=== PATIENT | male | born 1995 | race Hispanic/Latino ===

== ENCOUNTER 2021-01-07 03:42 | Emergency (ER) | payer OTHER ==
[~2021-01-07] VITALS: Ht 170.2 cm; Wt 90.7 kg
[2021-01-07] MEDS ORDERED: ISOVUE-370 76% 100ML VIAL As Ordered ONE (05:30)
[2021-01-07 05:35] LABS: BASO % 0.3 % (0.0-1.0); EOS % 0.2 % (0.0-3.0); HEMATOCRIT 43.3 % (42.0-52.0); HEMOGLOBIN 14.3 g/dl (13.5-17.5); LYMPH # 1.7 10^3/uL (1.5-5.0); LYMPH % 13.5 % (24.0-44.0); MEAN CORPUSCULAR VOLUME 93.7 fl (80.0-96.0); MONO # 0.9 10^3/uL (0.0-0.8); MONO % 7.2 % (2.0-8.0); NEUTROPHILS # 9.8 10^3/uL (1.5-8.5); NEUTROPHILS % 77.8 % (36.0-66.0); PLATELET COUNT, AUTOMATED 272 10^3/uL (150-450); RED BLOOD COUNT 4.62 10^6/uL (4.30-6.10); WHITE BLOOD COUNT 12.6 10^3/uL (4.0-10.0)
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
[2021-01-07 07:31] VITALS: BP 117/68
== END 2021-01-07 07:34 | disposition home or self-care (01) ==
LOC: M ED 03:42
DX: S36.92XA Contusion of unspecified intra-abdominal organ, initial encounter (principal); T14.8XXA Other injury of unspecified body region, initial encounter; V49.49XA Driver injured in collision with other motor vehicles in traffic accident, initial encounter; Y92.410 Unspecified street and highway as the place of occurrence of the external cause
CPT/HCPCS: 36415; 71260; 74177; 80047; 85025; 99284; Q9967